=== PATIENT | female | born 1945 | race Caucasian/White ===

== ENCOUNTER 2022-10-27 15:44 | Emergency (ER) | payer MEDICARE, BC ==
[~2022-10-27] VITALS: Ht 160 cm; Wt 74.1 kg
[2022-10-27 16:23] LABS: BASOPHILS % (AUTO) 0.2 % (0-1); EOSINOPHILS # (AUTO) 0.1 X10'3 (0-0.9); EOSINOPHILS % (AUTO) 0.5 % (0-6); HEMATOCRIT 40.1 % (35.0-45.0); HEMOGLOBIN 13.2 g/dl (12.0-16.0); LYMPHOCYTES # (AUTO) 1.1 X10'3 (1.1-4.8); LYMPHOCYTES % (AUTO) 7.8 % (21-51); MEAN CORPUSCULAR VOLUME 96.8 FL (78-98); MEAN PLATELET VOLUME 7.8 FL (7.4-10.4); MONOCYTES # (AUTO) 0.6 X10'3 (0-0.9); MONOCYTES % (AUTO) 4.6 % (2-12); NEUTROPHILS # (AUTO) 11.9 X10'3 (1.8-7.7); NEUTROPHILS % (AUTO) 86.9 % (42-75); PLATELET COUNT 268 X10'3 (140-440); RED BLOOD COUNT 4.14 X10'6 (4.20-5.60); WHITE BLOOD COUNT 13.6 X10'3 (4.5-11.0)
[2022-10-27 16:41] LABS: ALANINE AMINOTRANSFERASE 15 U/L (12-78); ALBUMIN 2.7 G/DL (3.4-5.0); ALBUMIN/GLOBULIN RATIO 0.8 (1.1-1.5); ALKALINE PHOSPHATASE 92 IU/L (46-116); ANION GAP 6 (8-16); ASPARTATE AMINO TRANSFERASE 18 U/L (10-37); BILIRUBIN,TOTAL 0.3 MG/DL (0.1-1.0); BLOOD UREA NITROGEN 18 MG/DL (7-18); BUN/CREATININE RATIO 22.5 (10.0-20.0); CALCIUM 8.8 MG/DL (8.5-10.1); CHLORIDE 108 MMOL/L (99-107); GLUCOSE 149 MG/DL (70-104); POTASSIUM 3.8 MMOL/L (3.5-5.1); SODIUM 138 MMOL/L (135-145); TOTAL PROTEIN 5.9 G/DL (6.4-8.2); eGFR 70 ML/MIN
[2022-10-27 17:52] VITALS: TEMP 98.5
[2022-10-27] MEDS ORDERED: LIDOcaine Viscous 15ml cup MM ONE (18:00)
[2022-10-27] MEDS ORDERED: mag hydrox/Alum hydrox/simeth 30ml oral suspension PO ONE (18:00)
[2022-10-27 18:09] VITALS: PULSE 77; RESP 16; O2SAT 97
[2022-10-27 18:31] VITALS: BP 175/78
== END 2022-10-27 18:32 | disposition home or self-care (01) ==
LOC: ER 15:45
DX: K44.9 Diaphragmatic hernia without obstruction or gangrene (principal); R07.9 Chest pain, unspecified
CPT/HCPCS: 36415; 71045; 80053; 83880; 84484; 85025; 93005; 99285